=== PATIENT | female | born 1990 | race Caucasian/White ===

== ENCOUNTER → 2017-09-13 | Outpatient (CLI) | payer OTHER | LOC: M RAD 12:10 | DX: N63.20 Unspecified lump in the left breast, unspecified quadrant (principal) ==

== ENCOUNTER 2018-05-07 14:42 | Emergency (ER) | payer OTHER ==
[2018-05-07 15:16] LABS: BASO # 0.1 10^3/uL (0.0-0.2); BASO % 0.5 % (0.0-1.0); EOS # 0.1 10^3/uL (0.0-0.50); EOS % 0.5 % (0.0-3.0); HEMATOCRIT 39.4 % (36.0-47.0); HEMOGLOBIN 13.1 g/dl (12.0-15.5); IMMATURE GRANULOCYTE % 0.3 % (0-3.0); LYMPH # 1.9 10^3/uL (1.5-6.5); LYMPH % 16.5 % (24.0-44.0); MEAN CORPUSCULAR HEMOGLOBIN 31.5 pg (27.0-33.0); MEAN CORPUSCULAR HGB CONC 33.2 g/dl (32.0-36.5); MEAN CORPUSCULAR VOLUME 94.7 fl (80.0-96.0); MONO # 0.6 10^3/uL (0.0-0.8); MONO % 5.7 % (0.0-5.0); NEUTROPHILS # 8.6 10^3/uL (1.8-7.7); NEUTROPHILS % 76.5 % (36.0-66.0); PLATELET COUNT, AUTOMATED 292 10^3/uL (150-450); RED BLOOD COUNT 4.16 10^6/uL (4.00-5.40); RED CELL DISTRIBUTION WIDTH 12.2 % (11.5-14.5); WHITE BLOOD COUNT 11.3 10^3/uL (4.0-10.0)
[2018-05-07 15:55] LABS: HCG, SERUM QUANTITATIVE < 1.0 MIU/ML
== END 2018-05-07 16:52 | disposition home or self-care (01) ==
LOC: M ED 14:42
DX: N93.9 Abnormal uterine and vaginal bleeding, unspecified (principal); Z32.02 Encounter for pregnancy test, result negative
CPT/HCPCS: 84702

== ENCOUNTER 2018-08-22 20:33 | Emergency (ER) | payer OTHER ==
[~2018-08-22] VITALS: Ht 160 cm; Wt 60.5 kg
[~2018-08-22 20:33] MED LIST: ESCI10TA2 PO
[2018-08-22] MEDS ORDERED: ONDA8TAB8 PO (20:39)
[2018-08-22] MEDS ORDERED: PREN1CHW PO (20:39)
[2018-08-22 21:20] LABS: INFLUENZA A AMPLIFICATION NEGATIVE (NEGATIVE); INFLUENZA B AMPLIFICATION NEGATIVE (NEGATIVE)
[2018-08-22] MEDS ORDERED: DEXTROMETHORPHAN 5 ML SYRUP (ROBITUSSIN PEDIATRIC COUGH) PO ONE (21:30)
[2018-08-22] MEDS ORDERED: NS 1,000 ML IV ONE (21:30)
[2018-08-22 23:15] VITALS: BP 116/64
== END 2018-08-22 23:37 | disposition home or self-care (01) ==
LOC: M ED 20:33
DX: O99.512 Diseases of the respiratory system complicating pregnancy, second trimester (principal); R05 Cough; Z3A.14 14 weeks gestation of pregnancy; Z87.891 Personal history of nicotine dependence